=== PATIENT | male | born 1980 | race Caucasian/White ===

== ENCOUNTER 2018-06-14 08:09 | Emergency (ER) | payer MEDICAID ==
[~2018-06-14] VITALS: Ht 160 cm; Wt 93.2 kg
[~2018-06-14 08:09] MED LIST: GUAI120015 PO
[2018-06-14 08:16] VITALS: BP 132/79
[2018-06-14] MEDS ORDERED: AMOX-422 PO (08:52)
== END 2018-06-14 09:12 | disposition home or self-care (01) ==
LOC: ER 08:09
DX: J02.9 Acute pharyngitis, unspecified (principal); R59.1 Generalized enlarged lymph nodes; G89.29 Other chronic pain; F17.200 Nicotine dependence, unspecified, uncomplicated; Z98.890 Other specified postprocedural states; Z79.899 Other long term (current) drug therapy
CPT/HCPCS: 99283